=== PATIENT | female | born 1970 | race Caucasian/White ===

== ENCOUNTER 2025-01-15 12:06 | Emergency (ER) | payer SELFPAY ==
--- NOTE | ~2025-01-15 | XR_ITS ---
EXAM/PROCEDURE: XR chest 1V portable - 01/15/2025 13:05 CDT HISTORY: 54 years old Female with weakness TECHNIQUE: Two view(s) of the chest. COMPARISON: None available. FINDINGS: LUNGS/ PLEURA: No focal consolidation. No appreciable pneumothorax or large pleural effusion. HEART/ MEDIASTINUM: Heart appears normal in size. BONES: No acute osseous abnormality. OTHER: Visualized upper abdomen is unremarkable. IMPRESSION: No acute process. Reviewed, dictated and finalized at location A. IMPRESSION: No acute process.
--- OUTSIDE RECORDS SUMMARY | 2025-01-15 12:09 | XMS_ITS | Clinical Summary ---
Author Organization [facility] Address [address] [place] [id number] Care Team Providers Care Dispatch Manager Name Role Phone Unavailable Primary Care Provider Unavailabl e Social History Tobacco Use Types Packs/Day Years Used Date Smoking Tobacco: Never Assessed Comments Unknown Sex and Gender Information Value Date Recorded Sex Assigned at Not on file Legal Sex Female 7:17 PM CDT Gender Identity Not on file Sexual Orientation Not on file Plan of Treatment Health Maintenance Due Date Last Done Comments Cervical Cancer Screening Pa p Smear (Age 30 to 64) Every 3 Years 1970 Colorectal Cancer Screening Colonoscopy (10 Years) 1970 Annual Physical 1973 Hepatitis C 02/02/1988 DTaP, Tdap and Td Vaccines ( 1 - Tdap) 1989 Hepatitis B Vaccines (1 of 3 - 19+ 3-dose series) 1989 Cervical Cancer Screening Pa p with HPV Testing (Age 30 to 64) Every 5 Years 02/02/2000 Cervical Cancer Screening with HPV 02/02/2000 Mammogram Screening 2010 Pneumococcal Vaccine: 50+ Ye ars (1 of 1 - PCV) 02/02/2020 Zoster Vaccines (1 of 2) 02/02/2020 COVID-19 Vaccine (2023-2 5 season) 2024 Meningococcal B Vaccine Aged Out No l onger eligible based on patient's age to complete this topic Meningococcal Vaccine Aged Out No usman lavinia eligible based on patient's age to complete this topic RSV Immunizations Under 20 Months Aged Out No longer eligible based on patient's age to complete this topic
[2025-01-15 12:13] VITALS: BP 96/64; PULSE 95; RESP 18; O2SAT 100
--- OUTSIDE RECORDS SUMMARY | 2025-01-15 12:40 | XMS_ITS | Clinical Summary ---
Author Organization [facility] Address [address] [place] [id number] Care Team Providers Care Hoop Cutter Name Role Phone Unavailable Primary Care Provider [...]
--- NOTE | 2025-01-15 12:44 | ECG_ITS ---
Test Date: 2025-01-15 12:51:40 Measurements Intervals [place] Rate: 83 P: 54 OR: 89 QRS: 71 QRSD: 76 T: 69 QT: 401 QTc: 472 Interpretive Statements SINUS RHYTHM No previous ECG available for comparison Electronically Signed On 01-15-2025 14:44:36 CDT by Marin Sheffield M.D.
[2025-01-15 13:05] LABS: Hematocrit 31.1 % (37.0-47.0); Hemoglobin 10.3 g/dL (12.0-15.0); Immature Granulocyte Percent A 2.2 % (0-0.5); Lymphocytes Absolute Auto 1.51 K/mm3 (0.9-3.2); Mean Corpuscular HGB Conc 33.1 g/dl (32-36); Mean Corpuscular Hemoglobin 35.0 pg (26-34); Mean Corpuscular Volume 105.8 fl (80-100); Nucleated Red Blood Cells Absolute Auto 0.000 K/mm3 (0.0-0.012); Nucleated Red Blood Cells Perc 0.0 % (0.0-0.2); Platelet Count Result 336 k/mm3 (150-375); Red Blood Count 2.94 M/mm3 (4.2-5.4); White Blood Count 11.5 K/mm3 (4.5-10.0)
[2025-01-15] MEDS: SODIUM CHLORIDE 0.9% IV 1,000 ML 999 ML IV CONT ×2 (13:09→15:52)
[2025-01-15 13:16] LABS: Alanine Aminotransferase 14 U/L (6-35); Albumin Level 4.1 g/dL (3.5-5.1); Alkaline Phosphatase 73 U/L (38-126); Anion Gap 24 mmol/L (4-12); Aspartate Amino Transferase 26 U/L (14-36); Bilirubin,Total 0.4 mg/dL (0.2-1.3); Blood Urea Nitrogen 23 mg/dL (7-17); Calcium 10.0 mg/dL (8.4-10.2); Carbon Dioxide 15 mmol/L (22-30); Chloride 94 mmol/L (98-107); Estimated CRCL calculation 37 ml/min; Estimated Glomerular Filt Rate 50; Glucose 83 mg/dL (65-110); Potassium 3.3 mmol/L (3.4-5.0); Sodium 133 mmol/L (137-145); Total Protein 7.4 g/dL (6.3-8.2)
[2025-01-15 13:29] LABS: Macrocytosis 1+ (NORMAL); Schistocytes None Seen
[2025-01-15] MEDS: ONDANSETRON INJ 4 MG/2 ML VIAL IV PUSH (14:17)
[2025-01-15 14:18] VITALS: BP 94/76; PULSE 78; RESP 19; O2SAT 100
[2025-01-15 14:48] LABS: Add Urine Microscopic? YES; Appearance Urine Cloudy (Clear); Glucose Urine UA Negative (Negative); Leukocyte Esterase Ur 1+ LEU/UL (Negative); Need Manual Microscopic Reviewed; Nitrate Urine Positive (Negative); Specific Grav Ur 1.022 (1.001-1.035)
[2025-01-15 15:14] LABS: Thyroid Stimulating Hormone Reflex 1.350 uIU/mL (0.465-4.68)
[2025-01-15 15:40] VITALS: BP 91/64; PULSE 83; RESP 18; O2SAT 100
[2025-01-15 16:10] VITALS: BP 100/65; PULSE 73; RESP 17; O2SAT 100
--- NOTE | 2025-01-15 17:16 | ED.GENADULT ---
HPI - General Adult General Chief complaint: Weakness Stated complaint: dental infection? decreased appetite, weakness Time Seen by Provider: 01/15/25 12:24 History of Present Illness HPI narrative: Patient is a 54-year-old female who has had decreased appetite as well as weakness and fatigue since having her teeth removed a couple months ago. She has been on some antibiotics. She reports she has some nausea and has suffered a greater than 10 lb weight loss due to the fact that she is not eating is nauseous. No fevers or chills. Occasional dizziness when going from sitting standing. No chest pain or chest pressure. Denies diarrhea. No facial swelling or drainage from the dental sites. Related Data Allergies Allergy/AdvReac Type Severity Reaction Status Date / Time acetaminophen Allergy VOMITING Verified 10/22/12 17:24 HYDROCODONE BIT Allergy VOMITING Uncoded 10/22/12 17:24 Review of Systems Review of Systems: All systems reviewed & are unremarkable except as noted in HPI and below Constitutional: Constitutional: Reports no additional constitutional complaints ENT: Reports system reviewed and no additional complaints, except as documented Cardiovascular: Cardiovascular: Reports no additional cardiovascular complaints Respiratory: Respiratory: Reports no additional respiratory complaints Gastrointestinal: Gastrointestinal: Reports no additional gastrointestinal complaints Genitourinary: Genitourinary: Reports no additional female genitourinary complaints [facility] Past Medical History Medical History (Updated 01/15/25 @ 18:43 by Gagan Bryant MD) Hypertension Asthma Surgical History Surgical History (Updated 01/15/25 @ 18:43 by Gagan Bryant MD) H/O dilation and curettage Exam Narrative: GENERAL: Well-appearing, that, and in no acute distress. HEAD: Normocephalic, atraumatic. ENT: Mucous membranes moist. Healing dental extraction sites without purulent drainage or exposed bone. No facial swelling. NECK: Supple. CHEST: Clear to auscultation. No respiratory distress. HEART: Regular rate and rhythm. Normal peripheral pulses. ABDOMEN: Soft, nontender, nondistended. EXTREMITIES: Normal range of motion. No edema. SKIN: Warm, dry, no rash. NEURO: Alert and oriented x3. PSYCH: Normal mood and affect. Course Course Emergency Course: Patient with some unremarkable lab round abnormalities. She does have 4+ bacteria with 21-50 white blood cells in her urine and positive leukocyte esterase. She will be started on oral antibiotic. I feel patient is suitable for discharge home. Recommend she follow-up with her PCP. Tolerating oral intake. Vital Signs Vital signs: Vital Signs Pulse Rate 95 01/15/25 12:13 Respiratory Rate 18 01/15/25 12:13 Blood Pressure 96/64 L 01/15/25 12:13 Pulse Oximetry 100 01/15/25 12:13 Oxygen Delivery Room Air 01/15/25 12:13 Pulse Rate 79 01/15/25 17:53 Respiratory Rate 17 01/15/25 17:53 Blood Pressure 100/66 01/15/25 17:53 Pulse Oximetry 100 01/15/25 17:53 Oxygen Delivery Room Air 01/15/25 12:13 Medical Decision Making Vital Signs Vital Signs: Vital Signs Pulse Rate 95 01/15/25 12:13 Respiratory Rate 18 01/15/25 12:13 Blood Pressure 96/64 L 01/15/25 12:13 Pulse Oximetry 100 01/15/25 12:13 Oxygen Delivery Room Air 01/15/25 12:13 Pulse Rate 79 01/15/25 17:53 Respiratory Rate 17 01/15/25 17:53 Blood Pressure 100/66 01/15/25 17:53 Pulse Oximetry 100 01/15/25 17:53 Oxygen Delivery Room Air 01/15/25 12:13 Lab Data 01/15/25 12:58 01/15/25 12:58 Labs: Lab Results 01/15/25 01/15/25 Range/Units 12:58 13:56 WBC 11.5 H (4.5-10.0) K/mm3 RBC 2.94 L (4.2-5.4) M/mm3 Hgb 10.3 L (12.0-15.0) g/dL Hct 31.1 L (37.0-47.0) % MCV 105.8 H (80-100) fl MCH 35.0 H (26-34) pg MCHC 33.1 (32-36) g/dl RDW 12.8 (11.5-14.5) % Plt Count 336 (150-375) k/mm3 MPV 10.7 H (7.4-10.4) fl Immature Gran % (Auto) 2.2 H (0-0.5) % Neut % (Auto) 76.0 H (45.5-73.1) % Lymph % (Auto) 13.1 L (18.3-44.2) % [place] % (Auto) 6.8 (2.6-8.5) % Eos % (Auto) 1.2 (0-4.4) % Baso % (Auto) 0.7 (0.2-1.2) % Lymph # (Auto) 1.51 (0.9-3.2) K/mm3 [place] # (Auto) 0.8 H (0.1-0.6) K/mm3 Eos # (Auto) 0.1 (0-0.3) K/mm3 Baso # (Auto) 0.1 (0.0-0.1) K/mm3 Abs Immat Gran (auto) 0.25 H (0.00-0.031) K/mm3 Absolute Neuts (auto) 8.8 H (1.3-6.7) K/mm3 Absolute Nucleated RBC 0.000 (0.0-0.012) K/mm3 Band Neutrophils % Not Reportable Nucleated RBC % 0.0 (0.0-0.2) % Platelet Estimate Slightly increased (Adequate) Macrocytosis 1+ (NORMAL) Schistocytes None seen Sodium 133 L (137-145) mmol/L Potassium 3.3 L (3.4-5.0) mmol/L Chloride 94 L (98-107) mmol/L Carbon Dioxide 15 L (22-30) mmol/L Anion Gap 24 H (4-12) mmol/L BUN 23 H (7-17) mg/dL Creatinine 1.13 H (0.7-1.0) mg/dL Estim Creat Clear Calc 37 ml/min Estimated GFR 50 L (59 - ) Glucose 83 (65-110) mg/dL Lactic Acid 1.2 (0.7-2.0) mmol/L Calcium 10.0 (8.4-10.2) mg/dL Total Bilirubin 0.4 (0.2-1.3) mg/dL AST 26 (14-36) U/L ALT 14 (6-35) U/L Alkaline Phosphatase 73 (38-126) U/L Total Protein 7.4 (6.3-8.2) g/dL Albumin 4.1 (3.5-5.1) g/dL TSH (Reflex) 1.350 (0.465-4.68) uIU/mL Urine Color Yellow (Yellow) Urine Appearance Cloudy H (Clear) Urine pH 6.0 (5.0-9.0) Ur Specific [place] 1.022 (1.001-1.035) Urine Protein 1+ H (Negative) mg/dL Urine Glucose (UA) Negative (Negative) mg/dL Urine Ketones 3+ H (Negative) mg/dL Ur Blood (Man) Negative (Negative) Urine Nitrate Positive H (Negative) Urine Bilirubin Negative (Negative) Urine Urobilinogen 1.0 (<2.0) mg/dL Add Ur Microanalysis Reviewed Leukocyte Esterase Rfl 1+ H (Negative) JAMA/UL Urine RBC 0-2 (0-2) /hpf Urine WBC 21-50 H (0-3) /hpf Ur Squamous Epith Cells Many H (Few) /hpf Urine Bacteria 4+ H /hpf Urine Casts 11-20 Hyaline Casts Present (None) /lpf Urine Mucus Present /lpf Imaging Data Radiologist's impression: ITS Impressions Chest X-Ray 01/15/25 13:25 IMPRESSION: No acute process. ECG Data EKG #1: ECG completion date: 01/15/25 ECG completion time: 12:51 EKG Interpretation: normal rate (83), sinus rhythm, non-specific ST changes, normal QRS and normal QT Discharge Plan Discharge Clinical Impression: UTI (urinary tract infection), Acute dehydration Patient Disposition: Home Condition: Stable Instructions: Antibiotic Form, Urinary Tract Infection in Women (ED) Additional Instructions: You should return to the emergency department if you develop severe nausea and vomiting and are unable to keep liquids down, if you develop severe back/flank or stomach pain, or if your symptoms are not clearly improving at home. Patient Language: [place] Prescriptions: New cephalexin 500 mg capsule 500 mg PO Q12H Qty: 14 0RF ondansetron 4 mg tablet,disintegrating 4 mg PO Q6H PRN (Reason: nausea and vomiting) Qty: 10 0RF Follow-up/Referrals: Uriel Read MD [Physician] - 1 Week UNKNOWN,DOCTOR [Primary Care Provider] - 1 Week
[2025-01-15 17:53] VITALS: BP 100/66; PULSE 79; RESP 17; O2SAT 100
== END 2025-01-15 17:55 | disposition home or self-care (01) ==
PROVIDERS: Emergency Provider Emergency Medicine
DX: N39.0 Urinary tract infection, site not specified (principal); E86.0 Dehydration; I10 Essential (primary) hypertension; J45.909 Unspecified asthma, uncomplicated
CPT/HCPCS: 36415; 71045; 80053; 81001; 83605; 84443; 85025; 93005; 96361; 96374; 99284; J2405; J7030